=== PATIENT | male | born 2000 | race Caucasian/White ===

== ENCOUNTER 2020-03-27 06:01 | Emergency (ER) | payer OTHER, SELFPAY ==
[2020-03-27] VITALS (7 sets, daily range): BP systolic 101–148; BP diastolic 62–91; PULSE 96–130; RESP 20; TEMP 36.1; O2SAT 99–100
--- NOTE | ~2020-03-27 | XR_ITS ---
EXAMINATION: XR chest 1V portable DATE: 03/27/2020 06:42 INDICATION: Syncope TECHNIQUE: frontal view of the chest was obtained. COMPARISON: None FINDINGS: The lungs are clear with no focal airspace opacities, pulmonary edema, pleural effusion or pneumothor ax. The cardiomediastinal silhouette is normal. Visualized bones and soft tissues are unremarkable. IMPRESSION: 1. No acute cardiopulmonary disease. Reviewed, dictated and finalized at location A.
--- NOTE | ~2020-03-27 | CT_ITS ---
EXAMINATION: CT abdomen pelvis w con DATE: 03/27/2020 07:26 INDICATION: Abdominal pain TECHNIQUE: Computed tomography (CT) of the abdomen and pelvis was performed with 100 mL Omnipaque-350 intravenous contrast. Automated exposure control and iterative reconstruction technique were employe d. The dose-length product was 1691.10 mGy-cm. COMPARISON: None FINDINGS: Lung bases are clear. Heart size is normal. No pericardial or pleural effusion. [place]. Diffuse he patic steatosis. Gallbladder, spleen, pancreas, bilateral adrenal glands and kidneys are normal. Tiny fat-containing umbilical hernia. Bowels are normal. The appendix is not visualized. No pericecal inf lammatory change to suggest acute appendicitis. Bladder and prostate are normal. No free intraperiton eal gas or fluid. Few mildly prominent but still normal-sized likely reactive ileocolic chain lymph n odes. No pathologically enlarged abdominal or pelvic lymphadenopathy. Bones are unremarkable. IMPRESSION: 1. No acute intra-abdominal/pelvic process. Reviewed, dictated and finalized at location A.
--- NOTE | 2020-03-27 06:20 | ECG_ITS ---
Measurements Intervals [place] Rate: 101 P: 28 FL: 154 QRS: 76 QRSD: 101 T: 20 QT: 336 QTc: 437 Interpretive Statements SINUS TACHYCARDIA BASELINE WANDER- V3 ABNORMAL ECGN Electronically Signed On 03-27-2020 6:59:21 CDT by Mello Monroy D.O.
--- NOTE | 2020-03-27 06:26 | ED.GENADULT ---
HPI - General Adult General Chief complaint: Syncope <Yo Queen DO - Last Filed: 03/27/20 06:34> Stated complaint: syncope after BM <Yo Queen DO - Last Filed: 03/27/20 06:34> Time Seen by Provider: 03/27/20 06:26 <Yo Queen DO - Last Filed: 03/27/20 06:34> Source: RN notes reviewed <Yo Queen DO - Last Filed: 03/27/20 06:34> History of Present Illness HPI narrative: Patient presents emergency department from home for syncopal episode. Patient states he started feeling bad last night with an uneasy stomach around midnight. States he went to sleep and woke up this morning went to the bathroom and had diarrhea. States while he sitting on the toilet he felt he was going to vomit got off the toilet and began to feel lightheaded and had a syncopal episode. Patient states that when he did wake up he vomited again and has had abdominal pain since that time located in the upper abdomen diffusely in the right and left upper quadrant. He states that he is not nauseous at this time. He denies any fevers or chills chest pain shortness of breath or any other symptoms. <Yo Queen DO - Last Filed: 03/27/20 06:34> Related Data Home medications: Home Medications Medication Instructions Recorded Confirmed hydrochlorothiazide 10 mg PO DAILY 03/27/20 lisinopril 10 mg PO DAILY 03/27/20 <Yo Queen DO - Last Filed: 03/27/20 06:34> Allergies/adverse reactions: Allergies Allergy/AdvReac Type Severity Reaction Status Date / Time No Known Allergies Allergy Verified 03/27/20 06:12 <Yo Queen DO - Last Filed: 03/27/20 06:34> Review of Systems Review of Systems: Narrative: Gen.: Denies fevers or chills Eyes: Denies eye pain or visual change ENT: Denies congestion Respiratory: Denies shortness of breath or cough CV: Reports syncope GI: D see HPI Musculoskeletal: Denies back pain or muscle pain Neuro: Denies numbness, tingling, weakness or focal weakness Skin: Denies rash Except as documented, all other systems reviewed and negative <Yo Queen DO - Last Filed: 03/27/20 06:34> [facility] Past Medical History Medical History: Medical History (Updated 03/27/20 @ 09:47 by Dandre Mccrary MD) Hypertension <Yo Queen DO - Last Filed: 03/27/20 06:34> Social History Social History: Social History (Updated 03/27/20 @ 06:27 by Yo Queen DO) Smoking status: Never smoker <Yo Queen DO - Last Filed: 03/27/20 06:34> Exam Narrative: Exam Narrative: APPEARANCE: No acute distress, nontoxic, resting in bed EYES: PERRL HEENT: Normocephalic, atraumatic, OMM RESPIRATORY: No respiratory distress Clear to auscultation bilaterally with no rhonchi wheezing or rales. CARDIOVASCULAR: Regular rate and rhythm without murmurs rubs or gallops. ABDOMINAL: Soft, nondistended, tender palpation in epigastric and right upper quadrant left upper quadrant, no tenderness right lower quadrant left lower quadrant, no rebound or guarding MUSCULOSKELETAl: Moves all extremities. No clubbing, cyanosis or edema. NEURO: Awake and alert x 3. Following commands, speech normal, no focal deficits SKIN:: Warm, dry. No rashes lesions or abrasions PSYCHIATRIC: Normal affect/mood, <Yo Queen DO - Last Filed: 03/27/20 06:34> Course Vital Signs Vital signs: Vital Signs Temperature 36.1 C L 03/27/20 06:10 Pulse Rate 98 03/27/20 06:10 Respiratory Rate 03/27/20 06:10 Blood Pressure 118/72 03/27/20 06:10 Pulse Oximetry 99 03/27/20 06:10 Temperature 36.1 C L 03/27/20 06:10 Pulse Rate 99 03/27/20 10:14 Respiratory Rate 03/27/20 10:14 Blood Pressure 135/69 03/27/20 10:14 Pulse Oximetry 100 03/27/20 10:14 <Yo Queen DO - Last Filed: 03/27/20 06:34> Vital Signs Temperature 36.1 C L 03/27/20 06:10 Pulse Rate 98 07/05/20 06:10 Respiratory Rate 20
[2020-03-27 06:35] LABS: Basophils Percent Auto 0.3 % (0.2-1.2); Eosinophils Percent Auto 0.2 % (0-4.4); Hematocrit 46.6 % (42.0-52.0); Hemoglobin 15.5 g/dL (14.0-18.0); Immature Granulocyte Absolute 0.04 K/mm3 (0.00-0.031); Immature Granulocyte Percent A 0.3 % (0-0.5); Lymphocytes Absolute Auto 2.68 K/mm3 (0.9-3.2); Lymphocytes Percent Auto 20.2 % (18.3-44.2); Mean Corpuscular HGB Conc 33.3 g/dl (32-36); Mean Corpuscular Hemoglobin 29.4 pg (26-34); Mean Corpuscular Volume 88.3 fl (80-100); Monocytes Absolute Auto 1.1 K/mm3 (0.1-0.6); Monocytes Percent Auto 8.5 % (2.6-8.5); Neutrophils Absolute Auto 9.3 K/mm3 (1.3-6.7); Neutrophils Percent Auto 70.5 % (45.5-73.1); Platelet Count Result 323 k/mm3 (150-375); Red Blood Count 5.28 M/mm3 (4.6-6.20); White Blood Count 13.2 K/mm3 (4.5-10.0)
[2020-03-27] MEDS: SODIUM CHLORIDE 0.9% IV 1,000 ML 999 ML IV CONT ×2 (06:37→06:50)
[2020-03-27 06:46] LABS: Lipase 222 U/L (23-300)
[2020-03-27 06:48] LABS: Alanine Aminotransferase 47 U/L (4-50); Albumin Level 4.9 g/dL (3.5-5.1); Alkaline Phosphatase 65 U/L (38-126); Aspartate Amino Transferase 28 U/L (17-59); Bilirubin,Total 0.6 mg/dL (0.2-1.3); Blood Urea Nitrogen 16 mg/dL (9-20); Calcium 9.7 mg/dL (8.4-10.2); Carbon Dioxide 23 mmol/L (22-30); Chloride 100 mmol/L (98-107); Estimated Glomerular Filt Rate > 60; Glucose 131 mg/dL (75-110); Potassium 3.9 mmol/L (3.4-5.0); Sodium 139 mmol/L (137-145)
[2020-03-27 07:00] LABS: Troponin I < 0.012 ng/mL (0.000-0.034)
[2020-03-27 09:00] LABS: Add Urine Microscopic? NO; Appearance Urine Clear (Clear); Bilirubin Urine Negative (Negative); Blood Urine Negative (Negative); Color Urine Straw (Yellow); Glucose Urine UA Negative (Negative); Ketones Urine Negative (Negative); Leukocyte Esterase Ur Negative LEU/UL (Negative); Nitrate Urine Negative (Negative); Protein Urine Negative (Negative); Urobilinogen Urine Negative mg/dL (<2.0)
[2020-03-27 09:01] LABS: Specific Grav Ur 1.045 (1.001-1.035)
== END 2020-03-27 10:16 | disposition home or self-care (01) ==
PROVIDERS: Emergency Provider Emergency Medicine; PCP Emergency Medicine
DX: R55 Syncope and collapse (principal); E86.0 Dehydration; R00.0 Tachycardia, unspecified; I10 Essential (primary) hypertension
CPT/HCPCS: 36415; 71045; 74177; 80053; 81003; 83690; 84484; 85025; 93005; 96360; 99284; J7030; Q9967

== ENCOUNTER 2020-03-31 23:24 | Emergency (ER) | payer OTHER, SELFPAY ==
[2020-03-31 23:42] VITALS: BP 152/105; PULSE 90; RESP 18; TEMP 35.8; O2SAT 100
--- NOTE | 2020-04-01 00:40 | PC.NURSE ---
Patient notified this RN that he was going to leave since there are still a lot of people in the waiting room. Patient states he has had these symptoms in the past and felt good enough to come get it checked out in the morning. Patient left ED at this time. ED charge nurse Lori notified.
== END 2020-04-01 00:40 | disposition left against medical advice (07) ==
PROVIDERS: PCP Emergency Medicine
DX: S31.831A Laceration without foreign body of anus, initial encounter (principal)
CPT/HCPCS: 99199

== ENCOUNTER 2022-10-15 10:58 | Emergency (ER) | payer OTHER, SELFPAY ==
[2022-10-15 11:08] VITALS: BP 161/107; PULSE 62; RESP 18; TEMP 37; O2SAT 100
[2022-10-15 11:41] LABS: Basophils Percent Auto 0.2 % (0.2-1.2); Eosinophils Absolute Auto 0.1 K/mm3 (0-0.3); Eosinophils Percent Auto 0.4 % (0-4.4); Hematocrit 46.3 % (42.0-52.0); Hemoglobin 15.2 g/dL (14.0-18.0); Immature Granulocyte Absolute 0.03 K/mm3 (0.00-0.031); Immature Granulocyte Percent A 0.3 % (0-0.5); Lymphocytes Absolute Auto 4.08 K/mm3 (0.9-3.2); Lymphocytes Percent Auto 36.1 % (18.3-44.2); Mean Corpuscular HGB Conc 32.8 g/dl (32-36); Mean Corpuscular Hemoglobin 29.3 pg (26-34); Mean Corpuscular Volume 89.4 fl (80-100); Monocytes Percent Auto 9.2 % (2.6-8.5); Neutrophils Absolute Auto 6.1 K/mm3 (1.3-6.7); Neutrophils Percent Auto 53.8 % (45.5-73.1); Platelet Count Result 388 k/mm3 (150-375); Red Blood Count 5.18 M/mm3 (4.6-6.20); Red Cell Distribution Width 12.8 % (11.5-14.5); White Blood Count 11.3 K/mm3 (4.5-10.0)
[2022-10-15 11:48] LABS: Alanine Aminotransferase 69 U/L (6-50); Albumin Level 4.9 g/dL (3.5-5.1); Alkaline Phosphatase 63 U/L (38-126); Anion Gap 13 mmol/L (8-16); Aspartate Amino Transferase 46 U/L (17-59); Bilirubin,Total 0.5 mg/dL (0.2-1.3); Blood Urea Nitrogen 13 mg/dL (9-20); Calcium 9.6 mg/dL (8.4-10.2); Carbon Dioxide 20 mmol/L (22-30); Chloride 104 mmol/L (98-107); Estimated CRCL calculation 223 ml/min; Estimated Glomerular Filt Rate > 60; Glucose 133 mg/dL (65-110); Lipase 140 U/L (23-300); Potassium 3.7 mmol/L (3.4-5.0); Sodium 137 mmol/L (137-145)
--- NOTE | 2022-10-15 13:22 | PC.NURSE ---
pt continuously approaching intake desk demanding medications. this RN educated pt that he will not be able to receive medications until a provider sees him. pt states fuck this place im leaving pt ambulated out of ED doors without difficultly.
== END 2022-10-15 13:43 | disposition left against medical advice (07) ==
LOC: ANHED 13:35
PROVIDERS: Emergency Provider Emergency Medicine; PCP Emergency Medicine
DX: R10.11 Right upper quadrant pain (principal)
CPT/HCPCS: 36415; 80053; 83690; 85025; 99199

== ENCOUNTER 2023-06-04 15:47 | Emergency (ER) | payer OTHER, SELFPAY ==
[2023-06-04 15:56] VITALS: BP 147/79; PULSE 74; RESP 19; TEMP 36.5; O2SAT 100
--- NOTE | 2023-06-04 18:10 | PC.NURSE ---
no answer for vitals signs at 1800
--- NOTE | 2023-06-04 18:22 | PC.NURSE ---
no answer for vital signs at 1814
--- NOTE | 2023-06-04 18:30 | PC.NURSE ---
no answer x3 for vital signs at this time.
== END 2023-06-04 18:36 | disposition left against medical advice (07) ==
LOC: ANHED 18:36
PROVIDERS: PCP Emergency Medicine
DX: R20.2 Paresthesia of skin (principal)
CPT/HCPCS: 99199

== ENCOUNTER 2024-01-24 13:25 | Outpatient (CLI) | payer OTHER, SELFPAY ==
--- NOTE | ~2024-01-24 | US_ITS ---
EXAMINATION: US soft tissue LE LT DATE: 01/24/2024 14:09 INDICATION: Epidermoid cyst of skin of left ankle. TECHNIQUE: Multiple grayscale and Doppler ultrasound images of the left lower limb were obtained. COMPARISON: None FINDINGS: There is no abnormal mass or cyst in the patient's area of concern anterior to the left ank le. IMPRESSION: 1. No abnormal mass or cyst in the patient's area of concern anterior to the left ankle. Reviewed, dictated and finalized at location E. IMPRESSION: 1. No abnormal mass or cyst in the patient's area of concern anterior to the le ft ankle.
== END 2024-01-24 13:26 | disposition home or self-care (01) ==
PROVIDERS: PCP Physician Assistant; Visit Provider Physician Assistant
DX: L72.0 Epidermal cyst (principal)
CPT/HCPCS: 76882